=== PATIENT | female | born 1985 | race Caucasian/White ===

== ENCOUNTER 2021-01-20 12:24 | Emergency (ER) | payer OTHER ==
[~2021-01-20 12:24] MED LIST: ASPIRIN CHEWABL81 MG PO; HEPARIN SO5000 UTS/1 SC; PRENATAL VITAM1 EAC8 PO; ZANTAC150 MG PO
[2021-01-20 13:30] LABS: HEMOGLOBIN 13.4 gm/dl (12.3-15.3); RED BLOOD COUNT 4.69 M/UL (4.00-5.10); WHITE BLOOD COUNT 7.2 K/UL (4.5-11.0)
[2021-01-20 13:57] LABS: BUN/CREATININE RATIO 26 (0-10)
[2021-01-20] MEDS ORDERED: K-DUR TAB 10 M10 MEQ PO (14:55)
== END 2021-01-20 15:33 | disposition home or self-care (01) ==
LOC: ER1 12:24
PROVIDERS: Physician Assistant
DX: E87.6 Hypokalemia (principal); M79.604 Pain in right leg; Z86.711 Personal history of pulmonary embolism; Z20.822 Contact with and (suspected) exposure to COVID-19
CPT/HCPCS: 0240U; 71045; 80053; 81001; 84703; 85025; 85379; 87081; 87086; 87880; 93005; 96374; 99284; J3480; J7040

== ENCOUNTER 2022-01-25 12:32 | Emergency (ER) | payer BC, MEDICAID ==
[~2022-01-25 12:32] MED LIST changes: +K-DUR TAB 10 M10 MEQ PO
[2022-01-25 16:15] LABS: HEMOGLOBIN 13.4 gm/dl (12.3-15.3); RED BLOOD COUNT 4.74 M/UL (4.00-5.10); WHITE BLOOD COUNT 7.7 K/UL (4.5-11.0)
[2022-01-25 16:47] LABS: BUN/CREATININE RATIO 20 (0-10)
== END 2022-01-25 17:32 | disposition home or self-care (01) ==
LOC: ER1 12:32
PROVIDERS: Physician Assistant
DX: R55 Syncope and collapse (principal); R42 Dizziness and giddiness; Z79.899 Other long term (current) drug therapy
CPT/HCPCS: 70450; 71045; 80053; 81001; 82550; 82553; 84484; 84703; 85025; 93005; 99285

== ENCOUNTER → 2022-02-19 | Outpatient (CLI) | payer OTHER, BC | LOC: HEART 5 15:30 | DX: E04.9 Nontoxic goiter, unspecified (principal); R94.31 Abnormal electrocardiogram [ECG] [EKG] | CPT/HCPCS: 76536 ==

== ENCOUNTER → 2022-04-11 | Outpatient (CLI) | payer OTHER, BC | LOC: HEART 5 04-05 08:30 | DX: R55 Syncope and collapse (principal) | CPT/HCPCS: 93306 ==

== ENCOUNTER → 2022-05-17 | Outpatient (CLI) | payer BC, OTHER | LOC: MRI 14:00 | DX: R51.9 Headache, unspecified (principal) | CPT/HCPCS: 70553; A9577 ==